=== PATIENT | male | born 1950 | race African-American/Black ===

== ENCOUNTER 2024-07-23 13:06 | Inpatient (IN) | payer OTHER ==
[2024-07-23] MEDS ORDERED: ACETAMINOPHEN INJECTION 100 ML ONE (14:10)
[2024-07-23] MEDS ORDERED: PIPERACILLIN/TAZOB 4.5 GM 4.5 GM/100 ML BAG IVPB ONE (14:10)
[2024-07-23 14:51] LABS: VENOUS BASE EXCESS -6.5 mmol/L (-2-2); VENOUS PCO2 38.2 mmHg (38-52); VENOUS PH 7.316 (7.310-7.410)
[2024-07-23 14:54] LABS: BASO % 0.1 % (0-2.0); HEMATOCRIT 31.7 % (35.4-49); HEMOGLOBIN 10.8 GM/dL (11.7-16.9); LYMPH % 30.8 % (8-40); MCH 27.9 pg (25.7-33.7); MEAN CELL VOLUME 81.9 fl (80-96); MEAN PLT VOLUME 8.3 fl (7.5-11.1); MONO % 3.9 % (3.8-10.2); NEUT % 65.2 % (42.8-82.8); PLATELET COUNT 151 10^3/uL (134-434); RBC 3.87 M/mm3 (4.00-5.60); RDW 16.4 % (11.9-15.9); WHITE BLOOD COUNT 5.1 K/mm3 (4.0-10.0)
[2024-07-23 14:55] LABS: INR 2.05 (0.83-1.09); PROTHROMBIN TIME (PATIENT) 22.6 SEC (9.7-13.0)
[2024-07-23 14:57] LABS: ACTIVATED PTT 40.5 SECONDS (25.2-36.5)
[2024-07-23] MEDS: PIPERACILLIN/TAZOB 4.5 GM 4.5 GM in DEXTROSE 5%-WATER 100 ML IVPB ONE (15:05)
[2024-07-23 15:07] LABS: POTASSIUM 3.6 mmol/L (3.5-5.1)
[2024-07-23 15:09] LABS: ALBUMIN 3.1 g/dl (3.4-5.0); BLOOD UREA NITROGEN 26.5 mg/dL (7-18); CALCIUM 8.4 mg/dL (8.5-10.1); MAGNESIUM 1.4 mg/dL (1.8-2.4)
[2024-07-23] MEDS: VANCOMYCIN 2,000 MG in DEXTROSE 5%-WATER - 500 ML IVPB ONE (15:10)
[2024-07-23 15:12] LABS: CREATININE 1.7 mg/dL (0.55-1.3)
[2024-07-23 15:14] LABS: BILIRUBIN,TOTAL 2.1 mg/dL (0.2-1); TOT PROT 7.3 g/dl (6.4-8.2)
[2024-07-23] MEDS: ACETAMINOPHEN 1000 MG/100 ML BAG IVPB ONE (15:18)
[2024-07-23] MEDS: LACTATED RINGERS SOLUTION 1000 ML INFUS.BAG IV ONE ×2 (15:18→21:32)
[2024-07-23 15:25] LABS: LACTIC ACID 4.9 mmol/L (0.4-2.0)
[2024-07-23 17:09] LABS: EPI CELLS 9 /uL (0-25.1); HYALINE CASTS 2 /uL (0-3.1); URINE APPEARANCE CLEAR; URINE BACTERIA 4 /uL (0-1359); URINE BILIRUBIN 1+ (NEGATIVE); URINE COLOR DK YELLOW; URINE GLUCOSE (UA) NEGATIVE (NEGATIVE); URINE KETONE TRACE (NEGATIVE); URINE LEUK ESTERASE NEGATIVE (NEGATIVE); URINE NITRITE NEGATIVE (NEGATIVE); URINE PROTEIN 1+ (NEGATIVE); URINE RBC 15 /uL (0-23.9); URINE WBC 13 /uL (0-25.8)
[2024-07-23] MEDS ORDERED: MAGNESIUM SULFATE IN WATER 2 GM/50 ML IVPB IVPB ONE (17:18)
[2024-07-23] MEDS: MAGNESIUM SULF 50% (8.12 MEQ/2 ML-1 GM VIAL) IVPB ONE (17:45)
[2024-07-23] MEDS: VANCOMYCIN/WATER 2 GRAMS 2,000 MG/400 ML PIGGYBACK IVPB ONE (17:45)
[2024-07-23 18:29] LABS: LACTIC ACID 4.6 mmol/L (0.4-2.0)
[2024-07-23] MEDS ORDERED: KETOROLAC TROMETHAMINE 15 MG/ML VIAL ONE (21:37)
[2024-07-23] MEDS ORDERED: THIAMINE HCL 200 MG/2 ML VIAL ONE (21:37)
[2024-07-23] MEDS: THIAMINE HCL 200 MG/2 ML VIAL IVPB ONE (21:57)
[2024-07-23] MEDS: KETOROLAC TROMETHAMINE 15 MG/ML VIAL IVPUSH ONE (21:57)
[2024-07-23 22:12] LABS: VENOUS BASE EXCESS -6.6 mmol/L (-2-2); VENOUS PCO2 34.4 mmHg (38-52); VENOUS PH 7.345 (7.310-7.410)
[2024-07-24] MEDS ORDERED: VANCOMYCIN 1,000 MG in DEXTROSE 5%-WATER - 250 ML IVPB SCH (01:00)
[2024-07-24] MEDS: GABAPENTIN 400 MG CAPSULE PO SCH ×2 (01:15→06:28)
[2024-07-24] MEDS: LACTATED RINGERS SOLUTION 1000 ML INFUS.BAG IV ONE ×2 (01:15→13:25)
[2024-07-24] MEDS: SODIUM CHLORIDE 1,000 ML IV SCH (01:15)
[2024-07-24] MEDS ORDERED: PIPERACILLIN/TAZOB 3.375 GM 3.375 GM in DEXTROSE 5%-WATER - 50 ML IVPB SCH (02:00)
[2024-07-24 02:27] LABS: POTASSIUM 4.5 mmol/L (3.5-5.1)
[2024-07-24 02:29] LABS: CALCIUM 7.8 mg/dL (8.5-10.1)
[2024-07-24 02:30] LABS: BLOOD UREA NITROGEN 36.6 mg/dL (7-18); MAGNESIUM 1.6 mg/dL (1.8-2.4)
[2024-07-24] MEDS ORDERED: NOREPINEPHRINE 0.9 % NACL 8 MG/250 ML BAG IVPB SCH (02:30)
[2024-07-24] MEDS ORDERED: PIPERACILLIN/TAZOB 3.375 GM 3.375 GM/50 ML BAG IVPB ONE (02:31)
[2024-07-24 02:33] LABS: CREATININE 2.2 mg/dL (0.55-1.3); PHOSPHOROUS 3.9 mg/dL (2.5-4.9)
[2024-07-24 02:34] LABS: BILIRUBIN,TOTAL 1.6 mg/dL (0.2-1); TOT PROT 6.3 g/dl (6.4-8.2)
[2024-07-24] MEDS: PIPERACILLIN/TAZOB 3.375 GM 3.375 GM in DEXTROSE 5%-WATER - 50 ML IVPB SCH (02:37)
[2024-07-24 02:40] LABS: ALBUMIN 2.4 g/dl (3.4-5.0); LACTIC ACID 5.7 mmol/L (0.4-2.0)
[2024-07-24] MEDS ORDERED: NOREPINEPHRINE BITARTRATE 4 MG/4 ML ML IV ONE (02:40)
[2024-07-24] MEDS ORDERED: VANCOMYCIN 1 GM PREMIX (F) 1 GM/200 ML BAG ONE (02:42)
[2024-07-24] MEDS: VANCOMYCIN 1 GM PREMIX (F) 1 GM/200 ML BAG IVPB SCH (02:42)
[2024-07-24] MEDS: NOREPINEPHRINE BITARTRATE 4,000 MCG in DEXTROSE 5%-WATER - 496 ML IV SCH (03:30)
[2024-07-24] MEDS: SODIUM CHLORIDE 1,000 ML IV STA (03:42)
[2024-07-24] MEDS ORDERED: ACETAMINOPHEN INJECTION 100 ML ONE (05:00)
[2024-07-24] MEDS ORDERED: TRIPLE LUMEN FLUSH 4 ML ML IVPUSH PRN (05:02)
[2024-07-24] MEDS: AZITHROMYCIN IVPB 500 MG/250 ML BAG IVPB SCH (05:03)
[2024-07-24] MEDS: NOREPINEPHRINE 0.9 % NACL 8 MG/250 ML BAG IVPB SCH (05:43)
[2024-07-24] MEDS: ACETAMINOPHEN 1000 MG/100 ML BAG IVPB PRN (05:56)
[2024-07-24 06:09] VITALS: BMI 40.9
[2024-07-24 06:19] LABS: POTASSIUM 3.6 mmol/L (3.5-5.1)
[2024-07-24 06:22] LABS: ALBUMIN 2.7 g/dl (3.4-5.0); BLOOD UREA NITROGEN 40.9 mg/dL (7-18); MAGNESIUM 1.7 mg/dL (1.8-2.4)
[2024-07-24 06:24] LABS: BILIRUBIN,DIRECT 0.5 mg/dL (0.0-0.2); CREATININE 1.9 mg/dL (0.55-1.3)
[2024-07-24 06:26] LABS: BILIRUBIN,TOTAL 1.6 mg/dL (0.2-1); TOT PROT 6.4 g/dl (6.4-8.2)
[2024-07-24 07:00] LABS: LACTIC ACID 3.6 mmol/L (0.4-2.0)
[2024-07-24 07:08] LABS: HEMOGLOBIN 10.1 GM/dL (11.7-16.9); MCH 27.5 pg (25.7-33.7); MCHC 33.5 g/dl (32.0-35.9); MEAN CELL VOLUME 82.1 fl (80-96); MEAN PLT VOLUME 8.9 fl (7.5-11.1); PLATELET COUNT 109 10^3/uL (134-434); RBC 3.65 M/mm3 (4.00-5.60); RDW 16.6 % (11.9-15.9); WHITE BLOOD COUNT 5.7 K/mm3 (4.0-10.0)
[2024-07-24] MEDS: MAGNESIUM 2GM/50ML STERILE WATER IVPB IVPB ONE (09:14)
[2024-07-24] MEDS: TAMSULOSIN HCL 0.4 MG CAP PO SCH (09:17)
[2024-07-24] MEDS: APIXABAN 5 MG TABLET PO SCH (09:17)
[2024-07-24 09:50] LABS: ANISOCYTOSIS 0; MACROCYTOSIS 0; TARGET CELLS 1+
[2024-07-24] MEDS ORDERED: metoPROLOL SUCCINATE 25 MG TAB.SR.24H (FP) PO SCH (10:00)
[2024-07-24] MEDS ORDERED: DEXMEDETOMIDINE IN 0.9 % NACL 400 MCG/100 ML BAG IVPB SCH (20:15)
[2024-07-24] MEDS: DEXMEDETOMIDINE PREMIX 400 MCG/100 ML BAG IVPB SCH (20:35)
[2024-07-24] MEDS ORDERED: ATORVASTATIN CA 40 MG TABLET (FP) PO SCH (22:00)
[2024-07-25] MEDS: PIPERACILLIN/TAZOB 3.375 GM 50 ML IVPB SCH (01:16)
[2024-07-25 07:19] LABS: HEMATOCRIT 30.4 % (35.4-49); HEMOGLOBIN 10.1 GM/dL (11.7-16.9); INR 1.81 (0.83-1.09); MCH 27.6 pg (25.7-33.7); MCHC 33.3 g/dl (32.0-35.9); MEAN CELL VOLUME 82.8 fl (80-96); MEAN PLT VOLUME 9.2 fl (7.5-11.1); PLATELET COUNT 96 10^3/uL (134-434); PROTHROMBIN TIME (PATIENT) 19.7 SEC (9.7-13.0); RBC 3.67 M/mm3 (4.00-5.60); RDW 16.6 % (11.9-15.9); WHITE BLOOD COUNT 7.2 K/mm3 (4.0-10.0)
[2024-07-25 07:42] LABS: POTASSIUM 3.8 mmol/L (3.5-5.1)
[2024-07-25 07:47] LABS: ALBUMIN 2.6 g/dl (3.4-5.0); BLOOD UREA NITROGEN 48.7 mg/dL (7-18)
[2024-07-25 07:49] LABS: CALCIUM 8.4 mg/dL (8.5-10.1); MAGNESIUM 2.5 mg/dL (1.8-2.4)
[2024-07-25 07:50] LABS: CREATININE 1.7 mg/dL (0.55-1.3); PHOSPHOROUS 3.4 mg/dL (2.5-4.9)
[2024-07-25 07:51] LABS: BILIRUBIN,TOTAL 1.9 mg/dL (0.2-1); TOT PROT 6.6 g/dl (6.4-8.2)
[2024-07-25 10:14] LABS: HCV DIAGNOSTIC IN-HOUSE W/RFLX REACTIVE (NONREACTIVE)
[2024-07-25 10:27] LABS: ANISOCYTOSIS 1+; MACROCYTOSIS 0; TARGET CELLS 2+
[2024-07-25] MEDS ORDERED: ENOXAPARIN NA (PORCINE) 30 MG/0.3 ML DISP.SYRIN SQ SCH (11:30)
[2024-07-25] MEDS: LORazepam 2 MG/ML SDV VIAL IVPUSH ONE (18:03)
[2024-07-26] MEDS: ACETAMINOPHEN 1000 MG/100 ML BAG IVPB PRN ×2 (06:17→21:26)
[2024-07-26 08:28] LABS: POTASSIUM 3.4 mmol/L (3.5-5.1)
[2024-07-26 08:30] LABS: CALCIUM 8.3 mg/dL (8.5-10.1)
[2024-07-26 08:31] LABS: ALBUMIN 2.2 g/dl (3.4-5.0); BLOOD UREA NITROGEN 47.8 mg/dL (7-18); MAGNESIUM 2.8 mg/dL (1.8-2.4)
[2024-07-26 08:34] LABS: CREATININE 1.2 mg/dL (0.55-1.3); PHOSPHOROUS 2.6 mg/dL (2.5-4.9)
[2024-07-26 08:35] LABS: BILIRUBIN,TOTAL 2.6 mg/dL (0.2-1); TOT PROT 6.4 g/dl (6.4-8.2)
[2024-07-26 08:45] LABS: HEMATOCRIT 27.5 % (35.4-49); HEMOGLOBIN 9.5 GM/dL (11.7-16.9); MCHC 34.4 g/dl (32.0-35.9); MEAN CELL VOLUME 81.4 fl (80-96); MEAN PLT VOLUME 9.1 fl (7.5-11.1); PLATELET COUNT 115 10^3/uL (134-434); RBC 3.38 M/mm3 (4.00-5.60); RDW 16.1 % (11.9-15.9); WHITE BLOOD COUNT 5.9 K/mm3 (4.0-10.0)
[2024-07-26] MEDS: POTASSIUM CHLORIDE ORAL LIQUID 20 MEQ/15 ML PO ONE (09:54)
[2024-07-26 10:29] LABS: INR 1.55 (0.83-1.09); PROTHROMBIN TIME (PATIENT) 16.9 SEC (9.7-13.0)
[2024-07-26] MEDS: PHYTONADIONE 10 MG/1 ML AMP IVPB ONE (10:42)
[2024-07-26] MEDS: PHYTONADIONE 5 MG TABLET PO ONE (10:49)
[2024-07-26 10:54] LABS: ANISOCYTOSIS 1+; MACROCYTOSIS 0
[2024-07-26] MEDS: INDOMETHACIN 50 MG RECTAL SUPPOSITORY PR ONE (16:14)
[2024-07-26] MEDS ORDERED: ROCURONIUM BROMIDE 50 MG/5 ML SYRINGE ONE (16:46)
[2024-07-27] MEDS: morphine SULFATE 4 MG/ML VIAL IVPUSH ONE (04:05)
[2024-07-27 10:48] LABS: HEMATOCRIT 27.6 % (35.4-49); HEMOGLOBIN 9.4 GM/dL (11.7-16.9); MCH 27.7 pg (25.7-33.7); MCHC 33.9 g/dl (32.0-35.9); MEAN CELL VOLUME 81.6 fl (80-96); MEAN PLT VOLUME 8.6 fl (7.5-11.1); PLATELET COUNT 142 10^3/uL (134-434); RBC 3.39 M/mm3 (4.00-5.60); RDW 16.5 % (11.9-15.9); WHITE BLOOD COUNT 9.3 K/mm3 (4.0-10.0)
[2024-07-27 11:18] LABS: CALCIUM 8.5 mg/dL (8.5-10.1)
[2024-07-27 11:19] LABS: BLOOD UREA NITROGEN 41.7 mg/dL (7-18)
[2024-07-27 11:23] LABS: BILIRUBIN,TOTAL 1.8 mg/dL (0.2-1); TOT PROT 6.6 g/dl (6.4-8.2)
[2024-07-27] MEDS ORDERED: PHYTONADIONE 10 MG/1 ML AMP IVPB ONE (14:55)
[2024-07-27] MEDS ORDERED: TRIPLE LUMEN FLUSH 4 ML ML IVPUSH PRN (15:46)
[2024-07-27] MEDS: PIPERACILLIN/TAZOB 3.375 GM 50 ML IVPB SCH (17:41)
[2024-07-27] MEDS: ACETAMINOPHEN 1000 MG/100 ML BAG IVPB PRN (19:38)
[2024-07-27] MEDS: GABAPENTIN 400 MG CAPSULE PO SCH (22:28)
[2024-07-27] MEDS: PHYTONADIONE 10 MG/1 ML AMP IVPB ONE (22:33)
[2024-07-28] MEDS: KETOROLAC TROMETHAMINE 15 MG/ML VIAL IVPUSH ONE (03:33)
[2024-07-28] MEDS ORDERED: INDOCYANINE GREEN 25 MG/10 ML VIAL IVPUSH ONE (07:07)
[2024-07-28] MEDS ORDERED: BUPIVACAINE HCL/PF 0.25% (2.5MG/ML) 10 ML VIAL ONE (07:08)
[2024-07-28] MEDS ORDERED: HEPARIN NA (PORCINE) 5,000 UNITS/ML 1ML VIAL ONE (07:08)
[2024-07-28] MEDS ORDERED: MIDAZOLAM HCL 2 MG/2 ML SINGLE DOSE VIAL ONE (07:14)
[2024-07-28] MEDS ORDERED: ONDANSETRON 4 MG/2 ML VIAL IVPUSH PRN ×2 (07:24→09:47)
[2024-07-28] MEDS ORDERED: oxyCODONE HCL 5 MG TABLET PO PRN ×3 (07:24→09:47)
[2024-07-28] MEDS ORDERED: DEXAMETHASONE SOD PHOSPHATE 4 MG/1 ML VIAL ONE (07:33)
[2024-07-28] MEDS ORDERED: ROCURONIUM BROMIDE 50 MG/5 ML SYRINGE ONE (07:33)
[2024-07-28] MEDS ORDERED: ONDANSETRON 4 MG/2 ML VIAL ONE (07:33)
[2024-07-28] MEDS ORDERED: SUGAMMADEX SODIUM 200 MG/2 ML VIAL ONE (07:33)
[2024-07-28] MEDS ORDERED: PROPOFOL 20 ML ONE (07:33)
[2024-07-28] MEDS ORDERED: LIDOCAINE HCL/PF 2% SDV 5ML VIAL ONE (07:33)
[2024-07-28] MEDS ORDERED: PIPERACILLIN/TAZOBACTAM 3.375 GM VIAL IVPB ONE (07:59)
[2024-07-28] MEDS: PIPERACILLIN/TAZOBACTAM 3.375 GM VIAL IVPB ONE (08:00)
[2024-07-28] MEDS: BUPIVACAINE HCL/PF 0.25% (2.5MG/ML) 10 ML VIAL IJ ONE (08:02)
[2024-07-28] MEDS ORDERED: ACETAMINOPHEN INJECTION 100 ML ONE (08:21)
[2024-07-28] MEDS ORDERED: SEVOFLURANE 250 ML BTL ONE (08:21)
[2024-07-28] MEDS ORDERED: KETOROLAC TROMETHAMINE 30 MG/1 ML VIAL ONE (08:50)
[2024-07-28] MEDS: LACTATED RINGERS SOLUTION 1,000 ML IV SCH ×2 (09:43→10:12)
[2024-07-28] MEDS ORDERED: TRIPLE LUMEN FLUSH 4 ML ML IVPUSH PRN (09:47)
[2024-07-28] MEDS: PIPERACILLIN/TAZOB 3.375 GM 50 ML IVPB SCH (10:12)
[2024-07-28 11:54] LABS: HEMATOCRIT 25.1 % (35.4-49); HEMOGLOBIN 8.6 GM/dL (11.7-16.9); MCH 27.6 pg (25.7-33.7); MCHC 34.1 g/dl (32.0-35.9); MEAN CELL VOLUME 81.1 fl (80-96); MEAN PLT VOLUME 8.8 fl (7.5-11.1); PLATELET COUNT 187 10^3/uL (134-434); RDW 16.1 % (11.9-15.9); WHITE BLOOD COUNT 13.2 K/mm3 (4.0-10.0)
[2024-07-28 12:14] LABS: POTASSIUM 4.1 mmol/L (3.5-5.1)
[2024-07-28 12:16] LABS: ALBUMIN 1.8 g/dl (3.4-5.0); CALCIUM 8.2 mg/dL (8.5-10.1)
[2024-07-28 12:17] LABS: BLOOD UREA NITROGEN 41.2 mg/dL (7-18); MAGNESIUM 2.3 mg/dL (1.8-2.4)
[2024-07-28 12:20] LABS: CREATININE 1.2 mg/dL (0.55-1.3); PHOSPHOROUS 2.6 mg/dL (2.5-4.9)
[2024-07-28 12:21] LABS: BILIRUBIN,TOTAL 1.5 mg/dL (0.2-1)
[2024-07-28 12:22] LABS: TOT PROT 6.2 g/dl (6.4-8.2)
[2024-07-28] MEDS: GABAPENTIN 400 MG CAPSULE PO SCH (13:04)
[2024-07-28] MEDS: SODIUM CHLORIDE 0.45% 1,000 ML IV SCH (14:12)
[2024-07-29] MEDS: CEFAZOLIN 2 GM/D5W 2 GM/50 ML ML IVPB SCH (10:13)
[2024-07-29] MEDS: TAMSULOSIN HCL 0.4 MG CAP PO SCH ×2 (10:13→10:27)
[2024-07-29 10:42] LABS: HEMATOCRIT 26.5 % (35.4-49); HEMOGLOBIN 8.9 GM/dL (11.7-16.9); MCH 27.1 pg (25.7-33.7); MCHC 33.5 g/dl (32.0-35.9); MEAN PLT VOLUME 8.7 fl (7.5-11.1); PLATELET COUNT 217 10^3/uL (134-434); RBC 3.28 M/mm3 (4.00-5.60); RDW 16.3 % (11.9-15.9); WHITE BLOOD COUNT 13.5 K/mm3 (4.0-10.0)
[2024-07-29 10:56] LABS: POTASSIUM 4.5 mmol/L (3.5-5.1)
[2024-07-29 10:59] LABS: CALCIUM 8.2 mg/dL (8.5-10.1)
[2024-07-29 11:00] LABS: ALBUMIN 1.7 g/dl (3.4-5.0); BLOOD UREA NITROGEN 42.2 mg/dL (7-18)
[2024-07-29 11:04] LABS: TOT PROT 6.4 g/dl (6.4-8.2)
[2024-07-29 12:21] LABS: ANISOCYTOSIS 0; HELMET CELLS 0; HOWELL-JOLLY BODIES 0; MACROCYTOSIS 0; OVALOCYTE 0; ROULEAU 0; SICKELED CELLS 0; TARGET CELLS 0; TEAR DROP CELLS 0; TOXIC GRANULATION 0
[2024-07-29] MEDS: PANTOPRAZOLE SODIUM 40 MG VIAL IVPUSH SCH (12:59)
[2024-07-29] MEDS: oxyCODONE HCL 5 MG TABLET PO PRN (18:18)
[2024-07-29] MEDS: ACETAMINOPHEN 325 MG TABLET (FP) PO PRN (19:21)
[2024-07-29 19:54] LABS: HEMATOCRIT 26.2 % (35.4-49); HEMOGLOBIN 8.8 GM/dL (11.7-16.9); MCH 27.4 pg (25.7-33.7); MCHC 33.8 g/dl (32.0-35.9); MEAN CELL VOLUME 81.1 fl (80-96); MEAN PLT VOLUME 9.2 fl (7.5-11.1); RBC 3.23 M/mm3 (4.00-5.60); RDW 16.9 % (11.9-15.9); WHITE BLOOD COUNT 20.6 K/mm3 (4.0-10.0)
[2024-07-29] MEDS: ACETAMINOPHEN 1000 MG/100 ML BAG IVPB ONE (21:05)
[2024-07-29 21:26] LABS: PLATELET COUNT 251 10^3/uL (134-434)
[2024-07-30] MEDS: ACETAMINOPHEN 1000 MG/100 ML BAG IVPB ONE (06:06)
[2024-07-30] MEDS: SODIUM CHLORIDE 0.45% 1,000 ML IV SCH (11:34)
[2024-07-30 13:06] LABS: EPI CELLS >36 /uL (0-25.1); HYALINE CASTS 1 /uL (0-3.1); URINE APPEARANCE CLOUDY; URINE BACTERIA 4 /uL (0-1359); URINE BILIRUBIN NEGATIVE (NEGATIVE); URINE COLOR YELLOW; URINE GLUCOSE (UA) NEGATIVE (NEGATIVE); URINE KETONE NEGATIVE (NEGATIVE); URINE LEUK ESTERASE NEGATIVE (NEGATIVE); URINE NITRITE NEGATIVE (NEGATIVE); URINE PROTEIN 2+ (NEGATIVE); URINE UROBILINOGEN 0.2 mg/dL (0.2-1.0)
[2024-07-30 13:07] LABS: URINE RBC 206 /uL (0-23.9)
[2024-07-30] MEDS: ACETAMINOPHEN 325 MG TABLET (FP) PO PRN (13:46)
[2024-07-30] MEDS: PIPERACILLIN/TAZOB 4.5 GM 4.5 GM/100 ML BAG IVPB SCH (17:22)
[2024-07-30] MEDS: VANCOMYCIN/WATER 1250 MG 1,250 MG/250 ML BAG IVPB ONE ×2 (17:59→22:37)
[2024-07-30 18:11] LABS: BASO % 0.3 % (0-2.0); EOS % 0.5 % (0-4.5); HEMATOCRIT 25.1 % (35.4-49); HEMOGLOBIN 8.2 GM/dL (11.7-16.9); LYMPH % 30.4 % (8-40); MCH 26.4 pg (25.7-33.7); MCHC 32.5 g/dl (32.0-35.9); MEAN CELL VOLUME 81.1 fl (80-96); MEAN PLT VOLUME 8.6 fl (7.5-11.1); NEUT % 62.8 % (42.8-82.8); PLATELET COUNT 276 10^3/uL (134-434); RDW 16.2 % (11.9-15.9); WHITE BLOOD COUNT 14.6 K/mm3 (4.0-10.0)
[2024-07-30 18:24] LABS: POTASSIUM 3.8 mmol/L (3.5-5.1)
[2024-07-30 18:26] LABS: CALCIUM 8.4 mg/dL (8.5-10.1)
[2024-07-30 18:27] LABS: ALBUMIN 1.6 g/dl (3.4-5.0); BLOOD UREA NITROGEN 25.8 mg/dL (7-18)
[2024-07-30 18:30] LABS: CREATININE 0.8 mg/dL (0.55-1.3)
[2024-07-30 18:31] LABS: BILIRUBIN,TOTAL 0.8 mg/dL (0.2-1)
[2024-07-30 18:32] LABS: TOT PROT 6.3 g/dl (6.4-8.2)
[2024-07-30] MEDS ORDERED: IBUPROFEN 800 MG/8 ML IJ IVPB PRN (22:51)
[2024-07-30] MEDS: IBUPROFEN 800 MG/8 ML IJ IVPB PRN (23:07)
[2024-07-31] MEDS ORDERED: SODIUM CHLORIDE 0.45% 1,000 ML IV SCH (09:00)
[2024-07-31] MEDS: oxyCODONE HCL 5 MG TABLET PO PRN (14:25)
[2024-07-31] MEDS: ACETAMINOPHEN 325 MG TABLET (FP) PO ONE (14:25)
[2024-07-31 17:26] LABS: HEMATOCRIT 22.4 % (35.4-49); HEMOGLOBIN 7.5 GM/dL (11.7-16.9); MCH 26.8 pg (25.7-33.7); MCHC 33.6 g/dl (32.0-35.9); MEAN CELL VOLUME 79.7 fl (80-96); MEAN PLT VOLUME 8.6 fl (7.5-11.1); PLATELET COUNT 274 10^3/uL (134-434); RBC 2.82 M/mm3 (4.00-5.60); RDW 16.5 % (11.9-15.9); WHITE BLOOD COUNT 15.2 K/mm3 (4.0-10.0)
[2024-07-31 18:03] LABS: POTASSIUM 3.7 mmol/L (3.5-5.1)
[2024-07-31 18:05] LABS: ALBUMIN 1.5 g/dl (3.4-5.0); BLOOD UREA NITROGEN 23.1 mg/dL (7-18); CALCIUM 8.2 mg/dL (8.5-10.1)
[2024-07-31 18:08] LABS: CREATININE 0.8 mg/dL (0.55-1.3)
[2024-07-31 18:10] LABS: BILIRUBIN,TOTAL 0.8 mg/dL (0.2-1); TOT PROT 6.2 g/dl (6.4-8.2)
[2024-07-31] MEDS: IBUPROFEN 800 MG/8 ML IJ IVPB PRN (20:49)
[2024-07-31 21:41] LABS: ANISOCYTOSIS 2+; MACROCYTOSIS 1+; TARGET CELLS 3+
[2024-08-01] MEDS: amLODIPine BESYLATE 10 MG TABLET (FP) PO SCH (09:50)
[2024-08-01] MEDS ORDERED: TRIPLE LUMEN FLUSH 4 ML ML IVPUSH PRN (10:16)
[2024-08-01] MEDS: oxyCODONE HCL 5 MG TABLET PO PRN (12:47)
[2024-08-01] MEDS: IBUPROFEN 800 MG/8 ML IJ IVPB PRN (13:21)
[2024-08-01] MEDS: GABAPENTIN 400 MG CAPSULE PO SCH (13:22)
[2024-08-01] MEDS ORDERED: VANCOMYCIN 1,000 MG in DEXTROSE 5%-WATER - 250 ML IVPB SCH (16:15)
[2024-08-01] MEDS ORDERED: VANCOMYCIN 1 GM PREMIX (F) 1 GM/200 ML BAG IVPB SCH (17:00)
[2024-08-01] MEDS: VANCOMYCIN/WATER 1250 MG 1,250 MG/250 ML BAG IVPB SCH (18:22)
[2024-08-01] MEDS: SODIUM CHLORIDE 1,000 ML IV SCH (18:22)
[2024-08-01] MEDS: PIPERACILLIN/TAZOB 4.5 GM 4.5 GM/100 ML BAG IVPB SCH (18:22)
[2024-08-01] MEDS: PANTOPRAZOLE SODIUM 40 MG VIAL IVPUSH SCH (21:05)
[2024-08-02 07:46] LABS: HEMATOCRIT 21.2 % (35.4-49); HEMOGLOBIN 7.2 GM/dL (11.7-16.9); MCH 26.8 pg (25.7-33.7); MCHC 33.7 g/dl (32.0-35.9); MEAN CELL VOLUME 79.7 fl (80-96); MEAN PLT VOLUME 8.6 fl (7.5-11.1); PLATELET COUNT 339 10^3/uL (134-434); RBC 2.66 M/mm3 (4.00-5.60); RDW 16.5 % (11.9-15.9); WHITE BLOOD COUNT 16.2 K/mm3 (4.0-10.0)
[2024-08-02 08:07] LABS: POTASSIUM 3.9 mmol/L (3.5-5.1)
[2024-08-02 08:14] LABS: CALCIUM 8.2 mg/dL (8.5-10.1)
[2024-08-02 08:15] LABS: ALBUMIN 1.4 g/dl (3.4-5.0); BLOOD UREA NITROGEN 21.7 mg/dL (7-18)
[2024-08-02 08:18] LABS: CREATININE 0.9 mg/dL (0.55-1.3); PHOSPHOROUS 3.4 mg/dL (2.5-4.9)
[2024-08-02 08:20] LABS: TOT PROT 6.2 g/dl (6.4-8.2)
[2024-08-02 10:03] LABS: ROULEAU 1+; TARGET CELLS 2+
[2024-08-02] MEDS: TAMSULOSIN HCL 0.4 MG CAP PO SCH (11:32)
[2024-08-03] MEDS: VANCOMYCIN HCL IN 5 % DEXTROSE 1,250 MG/250 ML BAG IV SCH (05:50)
[2024-08-03] MEDS: DEXTROSE 5%-WATER - 1,000 ML IV SCH (17:09)
[2024-08-04] MEDS: FENTANYL CITRATE/PF 50 MCG/ML VIAL IVPUSH ONE (13:10)
[2024-08-04] MEDS: VANCOMYCIN 1,000 MG in DEXTROSE 5%-WATER - 250 ML IVPB SCH (14:13)
[2024-08-04] MEDS: hydrALAZINE HCL 25 MG TABLET (FP) PO SCH (22:03)
[2024-08-05 08:06] LABS: HEMATOCRIT 22.1 % (35.4-49); HEMOGLOBIN 7.4 GM/dL (11.7-16.9); MCH 26.9 pg (25.7-33.7); MCHC 33.5 g/dl (32.0-35.9); MEAN CELL VOLUME 80.5 fl (80-96); MEAN PLT VOLUME 8.3 fl (7.5-11.1); PLATELET COUNT 543 10^3/uL (134-434); RBC 2.75 M/mm3 (4.00-5.60); RDW 16.3 % (11.9-15.9); WHITE BLOOD COUNT 16.7 K/mm3 (4.0-10.0)
[2024-08-05 08:09] LABS: BASO % 0.4 % (0-2.0); EOS % 0.9 % (0-4.5); HEMATOCRIT 22.2 % (35.4-49); HEMOGLOBIN 7.6 GM/dL (11.7-16.9); LYMPH % 8.4 % (8-40); MEAN CELL VOLUME 79.4 fl (80-96); MEAN PLT VOLUME 8.1 fl (7.5-11.1); MONO % 6.5 % (3.8-10.2); NEUT % 83.8 % (42.8-82.8); PLATELET COUNT 589 10^3/uL (134-434); WHITE BLOOD COUNT 17.4 K/mm3 (4.0-10.0)
[2024-08-05 08:26] LABS: POTASSIUM 3.7 mmol/L (3.5-5.1)
[2024-08-05 08:28] LABS: ALBUMIN 1.4 g/dl (3.4-5.0); BLOOD UREA NITROGEN 9.6 mg/dL (7-18); CALCIUM 8.4 mg/dL (8.5-10.1); MAGNESIUM 1.8 mg/dL (1.8-2.4)
[2024-08-05 08:31] LABS: CREATININE 0.8 mg/dL (0.55-1.3)
[2024-08-05 08:33] LABS: TOT PROT 6.6 g/dl (6.4-8.2)
[2024-08-05] MEDS: hydrALAZINE HCL 25 MG TABLET (FP) PO SCH (10:52)
[2024-08-05 10:53] LABS: ERYTHROCYTE SEDIMENTATION RATE > 140 mm/hr (0-20)
[2024-08-06] MEDS: oxyCODONE HCL 5 MG TABLET PO PRN (03:40)
[2024-08-06 07:44] LABS: HEMATOCRIT 19.7 % (35.4-49); MCH 26.5 pg (25.7-33.7); MCHC 33.4 g/dl (32.0-35.9); MEAN CELL VOLUME 79.5 fl (80-96); MEAN PLT VOLUME 7.9 fl (7.5-11.1); PLATELET COUNT 609 10^3/uL (134-434); RBC 2.47 M/mm3 (4.00-5.60); RDW 16.1 % (11.9-15.9); WHITE BLOOD COUNT 16.2 K/mm3 (4.0-10.0)
[2024-08-06 07:52] LABS: HEMOGLOBIN 6.6 GM/dL (11.7-16.9)
[2024-08-06 08:09] LABS: POTASSIUM 3.3 mmol/L (3.5-5.1)
[2024-08-06 08:11] LABS: ALBUMIN 1.4 g/dl (3.4-5.0); BLOOD UREA NITROGEN 10.2 mg/dL (7-18); CALCIUM 7.7 mg/dL (8.5-10.1); MAGNESIUM 1.7 mg/dL (1.8-2.4)
[2024-08-06 08:14] LABS: CREATININE 0.8 mg/dL (0.55-1.3)
[2024-08-06 08:15] LABS: PHOSPHOROUS 2.9 mg/dL (2.5-4.9)
[2024-08-06 08:16] LABS: BILIRUBIN,TOTAL 0.9 mg/dL (0.2-1); TOT PROT 6.2 g/dl (6.4-8.2)
[2024-08-06] MEDS: MAGNESIUM 1GM/D5W - 1 GM/100 ML IVPB IVPB ONE (10:49)
[2024-08-06] MEDS: POTASSIUM CHLORIDE TABS 20 MEQ TABLET.ER (FP) PO SCH (10:50)
[2024-08-06] MEDS: IBUPROFEN 400 MG TABLET (FP) PO ONE (13:10)
[2024-08-06] MEDS ORDERED: SENNOSIDES 8.6MG TABLET (FP) PO PRN (17:54)
[2024-08-06 18:55] LABS: BASO % 0.6 % (0-2.0); LYMPH % 10.4 % (8-40); MCH 26.6 pg (25.7-33.7); MCHC 33.5 g/dl (32.0-35.9); MEAN CELL VOLUME 79.5 fl (80-96); MEAN PLT VOLUME 7.5 fl (7.5-11.1); MONO % 9.2 % (3.8-10.2); NEUT % 78.8 % (42.8-82.8); PLATELET COUNT 597 10^3/uL (134-434); RBC 2.64 M/mm3 (4.00-5.60); RDW 15.8 % (11.9-15.9); WHITE BLOOD COUNT 14.4 K/mm3 (4.0-10.0)
[2024-08-06] MEDS: GABAPENTIN 400 MG CAPSULE PO SCH (21:29)
[2024-08-07] MEDS: PANTOPRAZOLE 40 MG TABLET PO SCH (10:05)
[2024-08-07] MEDS: FUROSEMIDE 40 MG TABLET (FP) PO SCH (10:12)
[2024-08-08 08:09] LABS: POTASSIUM 3.9 mmol/L (3.5-5.1)
[2024-08-08 08:15] LABS: ALBUMIN 1.5 g/dl (3.4-5.0); BLOOD UREA NITROGEN 11.9 mg/dL (7-18); CALCIUM 8.3 mg/dL (8.5-10.1)
[2024-08-08 08:20] LABS: TOT PROT 6.7 g/dl (6.4-8.2)
[2024-08-08 08:25] LABS: BILIRUBIN,TOTAL 0.8 mg/dL (0.2-1)
[2024-08-09] MEDS: ACETAMINOPHEN 325 MG TABLET (FP) PO PRN (17:31)
[2024-08-10 09:14] LABS: HEMATOCRIT 21.4 % (35.4-49); HEMOGLOBIN 7.4 GM/dL (11.7-16.9); MCH 27.4 pg (25.7-33.7); MCHC 34.4 g/dl (32.0-35.9); MEAN CELL VOLUME 79.6 fl (80-96); MEAN PLT VOLUME 7.2 fl (7.5-11.1); PLATELET COUNT 592 10^3/uL (134-434); RBC 2.69 M/mm3 (4.00-5.60); RDW 15.8 % (11.9-15.9); WHITE BLOOD COUNT 12.9 K/mm3 (4.0-10.0)
[2024-08-10 09:19] LABS: INR 1.39 (0.83-1.09); PROTHROMBIN TIME (PATIENT) 15.1 SEC (9.7-13.0)
[2024-08-10 09:21] LABS: ACTIVATED PTT 34.9 SECONDS (25.2-36.5)
[2024-08-10 09:31] LABS: ALBUMIN 1.5 g/dl (3.4-5.0); BLOOD UREA NITROGEN 11.8 mg/dL (7-18); CALCIUM 8.1 mg/dL (8.5-10.1); MAGNESIUM 1.7 mg/dL (1.8-2.4)
[2024-08-10 09:35] LABS: PHOSPHOROUS 2.9 mg/dL (2.5-4.9)
[2024-08-10 09:36] LABS: BILIRUBIN,TOTAL 0.6 mg/dL (0.2-1); TOT PROT 6.5 g/dl (6.4-8.2)
[2024-08-10] MEDS: MAGNESIUM OXIDE 400 MG TABLET (FP) PO ONE (14:43)
[2024-08-10] MEDS ORDERED: PROPOFOL 20 ML ONE (14:55)
[2024-08-10] MEDS ORDERED: BUPIVACAINE HCL/PF 0.25% (2.5MG/ML) 10 ML VIAL ONE (15:12)
[2024-08-10] MEDS ORDERED: ONDANSETRON 4 MG/2 ML VIAL ONE (16:56)
[2024-08-10] MEDS ORDERED: ACETAMINOPHEN 500 MG TABLET (FP) PO PRN (17:10)
[2024-08-10] MEDS ORDERED: SENNOSIDES 8.6MG TABLET (FP) PO PRN ×2 (17:10→18:06)
[2024-08-10] MEDS ORDERED: ACETAMINOPHEN 325 MG TABLET (FP) PO PRN (17:10)
[2024-08-10] MEDS ORDERED: oxyCODONE HCL 5 MG TABLET PO PRN (17:10)
[2024-08-10] MEDS ORDERED: TRIPLE LUMEN FLUSH 4 ML ML IVPUSH PRN ×2 (17:10→18:06)
[2024-08-10] MEDS ORDERED: ACETAMINOPHEN INJECTION 100 ML ONE (17:43)
[2024-08-10] MEDS: ACETAMINOPHEN 1000 MG/100 ML BAG IVPB ONE (17:50)
[2024-08-10] MEDS: LACTATED RINGERS SOLUTION 1,000 ML IV SCH ×2 (17:51→19:35)
[2024-08-10] MEDS: oxyCODONE HCL 5 MG TABLET PO PRN (19:33)
[2024-08-10] MEDS: GABAPENTIN 400 MG CAPSULE PO SCH (21:25)
[2024-08-10] MEDS: hydrALAZINE HCL 25 MG TABLET (FP) PO SCH (21:25)
[2024-08-10] MEDS ORDERED: GABAPENTIN 400 MG CAPSULE PO SCH (22:00)
[2024-08-10] MEDS ORDERED: hydrALAZINE HCL 25 MG TABLET (FP) PO SCH (22:00)
[2024-08-11] MEDS: PIPERACILLIN/TAZOB 4.5 GM 4.5 GM/100 ML BAG IVPB SCH ×2 (01:33→07:45)
[2024-08-11] MEDS: VANCOMYCIN HCL IN 5 % DEXTROSE 1,250 MG/250 ML BAG IV SCH ×2 (06:04→07:44)
[2024-08-11 08:17] LABS: HEMATOCRIT 19.4 % (35.4-49); MCH 27.1 pg (25.7-33.7); MCHC 33.6 g/dl (32.0-35.9); MEAN CELL VOLUME 80.7 fl (80-96); MEAN PLT VOLUME 7.2 fl (7.5-11.1); PLATELET COUNT 531 10^3/uL (134-434); RBC 2.41 M/mm3 (4.00-5.60); RDW 15.8 % (11.9-15.9); WHITE BLOOD COUNT 13.7 K/mm3 (4.0-10.0)
[2024-08-11 08:22] LABS: HEMOGLOBIN 6.5 GM/dL (11.7-16.9)
[2024-08-11 08:30] LABS: POTASSIUM 4.5 mmol/L (3.5-5.1)
[2024-08-11] MEDS ORDERED: TAMSULOSIN HCL 0.4 MG CAP PO SCH (08:30)
[2024-08-11 08:33] LABS: ALBUMIN 1.5 g/dl (3.4-5.0); CALCIUM 7.9 mg/dL (8.5-10.1)
[2024-08-11 08:34] LABS: BLOOD UREA NITROGEN 12.4 mg/dL (7-18); MAGNESIUM 1.6 mg/dL (1.8-2.4)
[2024-08-11 08:36] LABS: PHOSPHOROUS 3.4 mg/dL (2.5-4.9)
[2024-08-11 08:38] LABS: BILIRUBIN,TOTAL 0.6 mg/dL (0.2-1); TOT PROT 6.4 g/dl (6.4-8.2)
[2024-08-11] MEDS: amLODIPine BESYLATE 10 MG TABLET (FP) PO SCH (09:24)
[2024-08-11] MEDS: POTASSIUM CHLORIDE TABS 20 MEQ TABLET.ER (FP) PO SCH (09:24)
[2024-08-11] MEDS: PANTOPRAZOLE 40 MG TABLET PO SCH (09:25)
[2024-08-11] MEDS: FUROSEMIDE 40 MG TABLET (FP) PO SCH (09:25)
[2024-08-11] MEDS: TAMSULOSIN HCL 0.4 MG CAP PO SCH (09:25)
[2024-08-11] MEDS: MAGNESIUM OXIDE 400 MG TABLET (FP) PO ONE ×2 (09:28→12:05)
[2024-08-11] MEDS ORDERED: FUROSEMIDE 40 MG TABLET (FP) PO SCH (10:00)
[2024-08-11] MEDS ORDERED: PANTOPRAZOLE 40 MG TABLET PO SCH (10:00)
[2024-08-11] MEDS ORDERED: amLODIPine BESYLATE 10 MG TABLET (FP) PO SCH (10:00)
[2024-08-11] MEDS ORDERED: POTASSIUM CHLORIDE TABS 20 MEQ TABLET.ER (FP) PO SCH (10:00)
[2024-08-11] MEDS: FUROSEMIDE 40 MG/4 ML INJECTABLE VIAL IVPUSH ONE (14:31)
[2024-08-11 17:02] LABS: BASO % 0.7 % (0-2.0); EOS % 3.1 % (0-4.5); HEMATOCRIT 24.3 % (35.4-49); HEMOGLOBIN 8.1 GM/dL (11.7-16.9); LYMPH % 16.5 % (8-40); MCH 27.1 pg (25.7-33.7); MCHC 33.5 g/dl (32.0-35.9); MEAN CELL VOLUME 80.8 fl (80-96); MEAN PLT VOLUME 6.7 fl (7.5-11.1); MONO % 10.5 % (3.8-10.2); NEUT % 69.2 % (42.8-82.8); PLATELET COUNT 507 10^3/uL (134-434); RBC 3.01 M/mm3 (4.00-5.60); RDW 16.2 % (11.9-15.9)
[2024-08-12] MEDS: FUROSEMIDE 40 MG TABLET (FP) PO SCH (09:43)
[2024-08-12 11:10] LABS: HEMATOCRIT 23.3 % (35.4-49); HEMOGLOBIN 7.7 GM/dL (11.7-16.9); MCH 27.4 pg (25.7-33.7); MEAN CELL VOLUME 83.2 fl (80-96); MEAN PLT VOLUME 7.6 fl (7.5-11.1)
[2024-08-12 11:42] LABS: POTASSIUM 4.6 mmol/L (3.5-5.1)
[2024-08-12 11:46] LABS: ALBUMIN 1.7 g/dl (3.4-5.0); BLOOD UREA NITROGEN 14.9 mg/dL (7-18); CALCIUM 8.4 mg/dL (8.5-10.1); MAGNESIUM 1.7 mg/dL (1.8-2.4)
[2024-08-12 11:50] LABS: BILIRUBIN,TOTAL 0.5 mg/dL (0.2-1); CREATININE 1.3 mg/dL (0.55-1.3); PHOSPHOROUS 3.3 mg/dL (2.5-4.9)
[2024-08-12 12:29] LABS: PLATELET COUNT 233 10^3/uL (134-434)
[2024-08-12] MEDS: ACETAMINOPHEN 500 MG TABLET (FP) PO PRN (15:29)
[2024-08-13 09:22] LABS: BASO % 0.7 % (0-2.0); EOS % 4.9 % (0-4.5); HEMATOCRIT 22.3 % (35.4-49); HEMOGLOBIN 7.5 GM/dL (11.7-16.9); LYMPH % 13.2 % (8-40); MCH 27.5 pg (25.7-33.7); MCHC 33.4 g/dl (32.0-35.9); MEAN CELL VOLUME 82.2 fl (80-96); MEAN PLT VOLUME 7.3 fl (7.5-11.1); MONO % 9.5 % (3.8-10.2); NEUT % 71.7 % (42.8-82.8); PLATELET COUNT 366 10^3/uL (134-434); RBC 2.72 M/mm3 (4.00-5.60); RDW 15.8 % (11.9-15.9); WHITE BLOOD COUNT 11.7 K/mm3 (4.0-10.0)
[2024-08-13 09:35] LABS: POTASSIUM 4.1 mmol/L (3.5-5.1)
[2024-08-13 09:41] LABS: CALCIUM 8.4 mg/dL (8.5-10.1)
[2024-08-13 09:43] LABS: MAGNESIUM 1.9 mg/dL (1.8-2.4)
[2024-08-13 09:44] LABS: BLOOD UREA NITROGEN 13.9 mg/dL (7-18)
[2024-08-13 09:48] LABS: CREATININE 1.2 mg/dL (0.55-1.3); PHOSPHOROUS 3.2 mg/dL (2.5-4.9)
[2024-08-13] MEDS ORDERED: FUROSEMIDE 40 MG/4 ML INJECTABLE VIAL IVPUSH ONE (11:39)
[2024-08-13] MEDS: MAGNESIUM 2GM/50ML STERILE WATER IVPB IVPB ONE (12:29)
[2024-08-13] MEDS ORDERED: MAGNESIUM SULF 50% (8.12 MEQ/2 ML-1 GM VIAL) IVPB ONE (12:30)
[2024-08-13 15:59] LABS: HEMATOCRIT 24.5 % (35.4-49); HEMOGLOBIN 8.1 GM/dL (11.7-16.9); MCH 26.9 pg (25.7-33.7); MEAN CELL VOLUME 81.7 fl (80-96); MEAN PLT VOLUME 7.1 fl (7.5-11.1); PLATELET COUNT 415 10^3/uL (134-434); RDW 15.9 % (11.9-15.9); WHITE BLOOD COUNT 13.8 K/mm3 (4.0-10.0)
[2024-08-13] MEDS: FUROSEMIDE 40 MG/4 ML INJECTABLE VIAL IVPUSH ONE ×2 (22:06→22:22)
[2024-08-13] MEDS: VANCOMYCIN/WATER 1250 MG 1,250 MG/250 ML BAG IVPB SCH (22:22)
[2024-08-14] MEDS: VANCOMYCIN HCL 1250 MG IVPB ONE
[2024-08-14 08:00] LABS: HEMATOCRIT 25.3 % (35.4-49); HEMOGLOBIN 8.6 GM/dL (11.7-16.9); MCH 27.9 pg (25.7-33.7); MEAN CELL VOLUME 81.9 fl (80-96); MEAN PLT VOLUME 7.2 fl (7.5-11.1); PLATELET COUNT 390 10^3/uL (134-434); RBC 3.09 M/mm3 (4.00-5.60); RDW 15.8 % (11.9-15.9); WHITE BLOOD COUNT 12.1 K/mm3 (4.0-10.0)
[2024-08-14 08:30] LABS: POTASSIUM 4.5 mmol/L (3.5-5.1)
[2024-08-14 08:43] LABS: ALBUMIN 1.7 g/dl (3.4-5.0); BLOOD UREA NITROGEN 16.9 mg/dL (7-18); CALCIUM 8.4 mg/dL (8.5-10.1)
[2024-08-14 08:46] LABS: CREATININE 1.3 mg/dL (0.55-1.3); PHOSPHOROUS 3.4 mg/dL (2.5-4.9)
[2024-08-14 08:47] LABS: BILIRUBIN,TOTAL 0.6 mg/dL (0.2-1); TOT PROT 7.3 g/dl (6.4-8.2)
[2024-08-14] MEDS ORDERED: PROPOFOL 20 ML ONE (10:26)
[2024-08-14] MEDS ORDERED: ROCURONIUM BROMIDE 50 MG/5 ML SYRINGE ONE (10:26)
[2024-08-14] MEDS ORDERED: MIDAZOLAM HCL 2 MG/2 ML SINGLE DOSE VIAL ONE (10:26)
[2024-08-14] MEDS ORDERED: BUPIVACAINE HCL/PF 0.5% (5MG/ML) 10 ML VIAL ONE (10:31)
[2024-08-14] MEDS ORDERED: LIDOCAINE HCL 1%, 10 MG/ML (20ML VIAL) ONE (10:31)
[2024-08-14] MEDS ORDERED: ONDANSETRON 4 MG/2 ML VIAL ONE (12:35)
[2024-08-14] MEDS ORDERED: SUGAMMADEX SODIUM 200 MG/2 ML VIAL ONE ×2 (12:35→12:36)
[2024-08-14] MEDS ORDERED: ONDANSETRON 4 MG/2 ML VIAL IVPUSH PRN (13:30)
[2024-08-14] MEDS: LACTATED RINGERS SOLUTION 1,000 ML IV SCH (14:14)
[2024-08-14] MEDS ORDERED: KETOROLAC TROMETHAMINE 15 MG/ML VIAL IVPUSH PRN (16:14)
[2024-08-14] MEDS: ACETAMINOPHEN 1000 MG/100 ML BAG IVPB SCH (17:26)
[2024-08-15 16:20] LABS: HEMATOCRIT 29.2 % (35.4-49); HEMOGLOBIN 8.8 GM/dL (11.7-16.9); MCH 25.5 pg (25.7-33.7); MEAN CELL VOLUME 84.9 fl (80-96); MEAN PLT VOLUME 7.3 fl (7.5-11.1); PLATELET COUNT 273 10^3/uL (134-434); RBC 3.44 M/mm3 (4.00-5.60); RDW 16.3 % (11.9-15.9); WHITE BLOOD COUNT 14.4 K/mm3 (4.0-10.0)
[2024-08-15 19:10] LABS: CALCIUM 8.7 mg/dL (8.5-10.1); CREATININE 1.3 mg/dL (0.55-1.3); PHOSPHOROUS 4.1 mg/dL (2.5-4.9); POTASSIUM 5.4 mmol/L (3.5-5.1); TOT PROT 7.7 g/dl (6.4-8.2)
[2024-08-15 19:11] LABS: ALBUMIN 1.9 g/dl (3.4-5.0); BILIRUBIN,TOTAL 0.5 mg/dL (0.2-1)
[2024-08-15] MEDS: ASCORBIC ACID 500 MG TABLET (FP) PO SCH (22:22)
[2024-08-16 07:57] LABS: HEMATOCRIT 25.6 % (35.4-49); HEMOGLOBIN 8.7 GM/dL (11.7-16.9); MCH 27.9 pg (25.7-33.7); MEAN CELL VOLUME 81.9 fl (80-96); MEAN PLT VOLUME 7.1 fl (7.5-11.1); PLATELET COUNT 359 10^3/uL (134-434); RBC 3.12 M/mm3 (4.00-5.60); RDW 16.1 % (11.9-15.9); WHITE BLOOD COUNT 12.3 K/mm3 (4.0-10.0)
[2024-08-16 08:19] LABS: POTASSIUM 4.3 mmol/L (3.5-5.1)
[2024-08-16 08:25] LABS: ALBUMIN 1.8 g/dl (3.4-5.0); CALCIUM 8.6 mg/dL (8.5-10.1)
[2024-08-16 08:26] LABS: BLOOD UREA NITROGEN 20.3 mg/dL (7-18); MAGNESIUM 2.2 mg/dL (1.8-2.4)
[2024-08-16 08:29] LABS: BILIRUBIN,TOTAL 0.5 mg/dL (0.2-1); CREATININE 1.4 mg/dL (0.55-1.3); TOT PROT 7.3 g/dl (6.4-8.2)
[2024-08-16] MEDS: MULTIVITAMINS (DAILY MVI) TABLET (FP) PO SCH (10:41)
[2024-08-16] MEDS: ZINC SULFATE 220 MG CAPSULE (FP) PO SCH (10:42)
[2024-08-16] MEDS: AMINO ACIDS/PROTEIN HYDROLYS 30 ML LIQUID.PKT PO SCH (14:36)
[2024-08-16] MEDS: HEPARIN NA (PORCINE) 5,000 UNITS/ML 1ML VIAL SQ SCH (22:27)
[2024-08-17 09:39] LABS: HEMATOCRIT 24.1 % (35.4-49); HEMOGLOBIN 7.9 GM/dL (11.7-16.9); MCH 27.1 pg (25.7-33.7); MCHC 32.6 g/dl (32.0-35.9); MEAN CELL VOLUME 83.1 fl (80-96); PLATELET COUNT 334 10^3/uL (134-434); RDW 16.2 % (11.9-15.9); WHITE BLOOD COUNT 11.3 K/mm3 (4.0-10.0)
[2024-08-17 09:54] LABS: POTASSIUM 3.8 mmol/L (3.5-5.1)
[2024-08-17 10:32] LABS: ALBUMIN 1.8 g/dl (3.4-5.0)
[2024-08-17 10:33] LABS: CALCIUM 8.8 mg/dL (8.5-10.1)
[2024-08-17 10:43] LABS: BILIRUBIN,TOTAL 0.4 mg/dL (0.2-1); BLOOD UREA NITROGEN 22.9 mg/dL (7-18); CREATININE 1.3 mg/dL (0.55-1.3); MAGNESIUM 2.1 mg/dL (1.8-2.4); PHOSPHOROUS 3.9 mg/dL (2.5-4.9)
[2024-08-18 09:52] LABS: HEMOGLOBIN 8.1 GM/dL (11.7-16.9); MCH 27.6 pg (25.7-33.7); MCHC 33.8 g/dl (32.0-35.9); MEAN CELL VOLUME 81.8 fl (80-96); PLATELET COUNT 338 10^3/uL (134-434); RBC 2.94 M/mm3 (4.00-5.60); WHITE BLOOD COUNT 10.7 K/mm3 (4.0-10.0)
[2024-08-18] MEDS ORDERED: TRIPLE LUMEN FLUSH 4 ML ML IVPUSH PRN (09:57)
[2024-08-18] MEDS ORDERED: SENNOSIDES 8.6MG TABLET (FP) PO PRN (09:57)
[2024-08-18 10:09] LABS: POTASSIUM 4.3 mmol/L (3.5-5.1)
[2024-08-18 10:12] LABS: ALBUMIN 1.7 g/dl (3.4-5.0); BLOOD UREA NITROGEN 25.3 mg/dL (7-18); CALCIUM 8.6 mg/dL (8.5-10.1); MAGNESIUM 2.1 mg/dL (1.8-2.4)
[2024-08-18 10:15] LABS: CREATININE 1.3 mg/dL (0.55-1.3); PHOSPHOROUS 3.7 mg/dL (2.5-4.9)
[2024-08-18 10:17] LABS: BILIRUBIN,TOTAL 0.3 mg/dL (0.2-1)
[2024-08-18] MEDS: hydrALAZINE HCL 25 MG TABLET (FP) PO SCH (10:59)
[2024-08-18] MEDS: POTASSIUM CHLORIDE TABS 20 MEQ TABLET.ER (FP) PO SCH (12:55)
[2024-08-18] MEDS: FUROSEMIDE 40 MG TABLET (FP) PO SCH (12:55)
[2024-08-18] MEDS: GABAPENTIN 400 MG CAPSULE PO SCH (12:55)
[2024-08-18] MEDS: PANTOPRAZOLE 40 MG TABLET PO SCH (12:56)
[2024-08-18] MEDS: amLODIPine BESYLATE 10 MG TABLET (FP) PO SCH (12:56)
[2024-08-18] MEDS: oxyCODONE HCL 5 MG TABLET PO PRN (21:15)
[2024-08-19] MEDS: TAMSULOSIN HCL 0.4 MG CAP PO SCH (08:28)
[2024-08-19 10:07] LABS: HEMATOCRIT 23.7 % (35.4-49); MCH 27.8 pg (25.7-33.7); MCHC 33.6 g/dl (32.0-35.9); MEAN CELL VOLUME 82.6 fl (80-96); MEAN PLT VOLUME 7.1 fl (7.5-11.1); PLATELET COUNT 321 10^3/uL (134-434); RBC 2.87 M/mm3 (4.00-5.60); WHITE BLOOD COUNT 9.1 K/mm3 (4.0-10.0)
[2024-08-19 10:18] LABS: ALBUMIN 1.8 g/dl (3.4-5.0)
[2024-08-19 10:21] LABS: CREATININE 1.1 mg/dL (0.55-1.3); PHOSPHOROUS 3.3 mg/dL (2.5-4.9)
[2024-08-19 10:23] LABS: BILIRUBIN,TOTAL 0.3 mg/dL (0.2-1); TOT PROT 7.1 g/dl (6.4-8.2)
[2024-08-19 10:50] LABS: POTASSIUM 4.1 mmol/L (3.5-5.1)
[2024-08-19 11:02] LABS: CALCIUM 8.9 mg/dL (8.5-10.1)
[2024-08-20 09:00] LABS: BASO % 0.7 % (0-2.0); EOS % 3.5 % (0-4.5); HEMOGLOBIN 8.3 GM/dL (11.7-16.9); LYMPH % 30.9 % (8-40); MCH 28.2 pg (25.7-33.7); MCHC 34.5 g/dl (32.0-35.9); MEAN CELL VOLUME 81.6 fl (80-96); MEAN PLT VOLUME 7.2 fl (7.5-11.1); MONO % 9.2 % (3.8-10.2); NEUT % 55.7 % (42.8-82.8); PLATELET COUNT 328 10^3/uL (134-434); RBC 2.95 M/mm3 (4.00-5.60); RDW 16.1 % (11.9-15.9); WHITE BLOOD COUNT 9.7 K/mm3 (4.0-10.0)
[2024-08-20 09:33] LABS: POTASSIUM 4.6 mmol/L (3.5-5.1)
[2024-08-20 09:35] LABS: ALBUMIN 1.9 g/dl (3.4-5.0); BLOOD UREA NITROGEN 25.2 mg/dL (7-18)
[2024-08-20 09:38] LABS: CREATININE 1.1 mg/dL (0.55-1.3); PHOSPHOROUS 3.4 mg/dL (2.5-4.9)
[2024-08-20 09:39] LABS: BILIRUBIN,TOTAL 0.3 mg/dL (0.2-1); TOT PROT 7.4 g/dl (6.4-8.2)
[2024-08-21 08:15] LABS: HEMATOCRIT 25.1 % (35.4-49); HEMOGLOBIN 8.5 GM/dL (11.7-16.9); MCH 28.1 pg (25.7-33.7); MEAN CELL VOLUME 82.6 fl (80-96); PLATELET COUNT 329 10^3/uL (134-434); RBC 3.04 M/mm3 (4.00-5.60); RDW 16.4 % (11.9-15.9); WHITE BLOOD COUNT 9.6 K/mm3 (4.0-10.0)
[2024-08-21 08:28] LABS: POTASSIUM 4.9 mmol/L (3.5-5.1)
[2024-08-21 08:31] LABS: CALCIUM 9.2 mg/dL (8.5-10.1); MAGNESIUM 1.9 mg/dL (1.8-2.4)
[2024-08-21 08:32] LABS: BLOOD UREA NITROGEN 27.7 mg/dL (7-18)
[2024-08-21 08:34] LABS: PHOSPHOROUS 3.8 mg/dL (2.5-4.9)
[2024-08-21 08:35] LABS: CREATININE 1.2 mg/dL (0.55-1.3)
[2024-08-21 08:36] LABS: BILIRUBIN,TOTAL 0.3 mg/dL (0.2-1); TOT PROT 7.5 g/dl (6.4-8.2)
[2024-08-22 06:48] LABS: BASO % 0.6 % (0-2.0); HEMATOCRIT 24.1 % (35.4-49); HEMOGLOBIN 8.2 GM/dL (11.7-16.9); LYMPH % 33.6 % (8-40); MCH 27.8 pg (25.7-33.7); MCHC 33.9 g/dl (32.0-35.9); MEAN CELL VOLUME 82.1 fl (80-96); MEAN PLT VOLUME 6.9 fl (7.5-11.1); MONO % 9.3 % (3.8-10.2); NEUT % 53.5 % (42.8-82.8); PLATELET COUNT 311 10^3/uL (134-434); RBC 2.93 M/mm3 (4.00-5.60); RDW 16.6 % (11.9-15.9)
[2024-08-22 07:14] LABS: POTASSIUM 4.4 mmol/L (3.5-5.1)
[2024-08-22 07:17] LABS: BLOOD UREA NITROGEN 30.8 mg/dL (7-18); CALCIUM 9.5 mg/dL (8.5-10.1); MAGNESIUM 1.9 mg/dL (1.8-2.4)
[2024-08-22 07:18] LABS: ALBUMIN 1.9 g/dl (3.4-5.0)
[2024-08-22 07:20] LABS: CREATININE 1.2 mg/dL (0.55-1.3)
[2024-08-22 07:21] LABS: PHOSPHOROUS 4.1 mg/dL (2.5-4.9)
[2024-08-22 07:22] LABS: BILIRUBIN,TOTAL 0.4 mg/dL (0.2-1); TOT PROT 7.2 g/dl (6.4-8.2)
[2024-08-22] MEDS: MELATONIN 5 MG TABLETS PO ONE (21:09)
[2024-08-23 06:30] LABS: BASO % 1.2 % (0-2.0); HEMATOCRIT 24.8 % (35.4-49); HEMOGLOBIN 8.4 GM/dL (11.7-16.9); LYMPH % 38.7 % (8-40); MCH 27.7 pg (25.7-33.7); MCHC 33.8 g/dl (32.0-35.9); MEAN CELL VOLUME 82.2 fl (80-96); MEAN PLT VOLUME 7.4 fl (7.5-11.1); MONO % 9.6 % (3.8-10.2); NEUT % 46.5 % (42.8-82.8); PLATELET COUNT 286 10^3/uL (134-434); RBC 3.02 M/mm3 (4.00-5.60); RDW 16.5 % (11.9-15.9); WHITE BLOOD COUNT 11.7 K/mm3 (4.0-10.0)
[2024-08-23 06:42] LABS: INR 1.18 (0.83-1.09); PROTHROMBIN TIME (PATIENT) 12.9 SEC (9.7-13.0)
[2024-08-23 06:50] LABS: POTASSIUM 4.7 mmol/L (3.5-5.1)
[2024-08-23 06:53] LABS: BLOOD UREA NITROGEN 37.4 mg/dL (7-18); MAGNESIUM 1.9 mg/dL (1.8-2.4)
[2024-08-23 06:56] LABS: CREATININE 1.3 mg/dL (0.55-1.3); PHOSPHOROUS 4.5 mg/dL (2.5-4.9)
[2024-08-23 06:58] LABS: BILIRUBIN,TOTAL 0.5 mg/dL (0.2-1); TOT PROT 7.4 g/dl (6.4-8.2)
[2024-08-23] MEDS: LIDOCAINE HCL 1%, 10 MG/ML (50 mL VIAL) INF ONE (10:00)
[2024-08-23] MEDS ORDERED: ONDANSETRON 4 MG/2 ML VIAL IVPUSH PRN ×2 (10:00→12:26)
[2024-08-23] MEDS ORDERED: PROPOFOL 20 ML ONE (10:06)
[2024-08-23] MEDS ORDERED: MIDAZOLAM HCL 2 MG/2 ML SINGLE DOSE VIAL ONE (10:06)
[2024-08-23] MEDS ORDERED: ONDANSETRON 4 MG/2 ML VIAL ONE (10:36)
[2024-08-23] MEDS ORDERED: DEXAMETHASONE SOD PHOSPHATE 4 MG/1 ML VIAL ONE (10:36)
[2024-08-23] MEDS ORDERED: KETOROLAC TROMETHAMINE 30 MG/1 ML VIAL ONE (10:37)
[2024-08-23] MEDS ORDERED: ceFAZolin SODIUM 1 GM VIAL ONE (10:41)
[2024-08-23] MEDS: ceFAZolin SODIUM 1 GM VIAL IVPB ONE (10:45)
[2024-08-23] MEDS ORDERED: TRIPLE LUMEN FLUSH 4 ML ML IVPUSH PRN (12:26)
[2024-08-23] MEDS ORDERED: SENNOSIDES 8.6MG TABLET (FP) PO PRN (12:26)
[2024-08-23] MEDS: LACTATED RINGERS SOLUTION 1,000 ML IV SCH ×2 (14:29→14:37)
[2024-08-23] MEDS: oxyCODONE HCL 5 MG TABLET PO PRN (15:36)
[2024-08-23] MEDS: HEPARIN NA (PORCINE) 5,000 UNITS/ML 1ML VIAL SQ SCH (15:41)
[2024-08-23 15:58] VITALS: RESP 18
[2024-08-23] MEDS: CEFAZOLIN 2 GM/D5W 2 GM/50 ML ML IVPB SCH (17:51)
[2024-08-23 19:28] LABS: BASO % 0.3 % (0-2.0); HEMOGLOBIN 8.5 GM/dL (11.7-16.9); LYMPH % 13.2 % (8-40); MCH 28.1 pg (25.7-33.7); MCHC 33.9 g/dl (32.0-35.9); MEAN CELL VOLUME 82.7 fl (80-96); MEAN PLT VOLUME 6.9 fl (7.5-11.1); MONO % 2.7 % (3.8-10.2); NEUT % 83.8 % (42.8-82.8); PLATELET COUNT 286 10^3/uL (134-434); RBC 3.02 M/mm3 (4.00-5.60); RDW 16.4 % (11.9-15.9); WHITE BLOOD COUNT 12.3 K/mm3 (4.0-10.0)
[2024-08-23 19:47] LABS: POTASSIUM 4.9 mmol/L (3.5-5.1)
[2024-08-23 19:50] LABS: CALCIUM 8.8 mg/dL (8.5-10.1)
[2024-08-23 19:51] LABS: BLOOD UREA NITROGEN 40.4 mg/dL (7-18)
[2024-08-23 19:54] LABS: CREATININE 1.5 mg/dL (0.55-1.3)
[2024-08-23] MEDS: GABAPENTIN 400 MG CAPSULE PO SCH (21:25)
[2024-08-23] MEDS: hydrALAZINE HCL 25 MG TABLET (FP) PO SCH (21:26)
[2024-08-23] MEDS: ASCORBIC ACID 500 MG TABLET (FP) PO SCH (21:26)
[2024-08-24 07:08] LABS: POTASSIUM 4.5 mmol/L (3.5-5.1)
[2024-08-24 07:12] LABS: CALCIUM 8.7 mg/dL (8.5-10.1)
[2024-08-24 07:14] LABS: BLOOD UREA NITROGEN 41.7 mg/dL (7-18)
[2024-08-24 07:15] LABS: CREATININE 1.3 mg/dL (0.55-1.3); PHOSPHOROUS 4.4 mg/dL (2.5-4.9)
[2024-08-24 07:18] LABS: BILIRUBIN,TOTAL 0.4 mg/dL (0.2-1)
[2024-08-24 08:16] LABS: BASO % 0.2 % (0-2.0); HEMOGLOBIN 8.9 GM/dL (11.7-16.9); LYMPH % 26.4 % (8-40); MCH 28.5 pg (25.7-33.7); MCHC 34.3 g/dl (32.0-35.9); MEAN CELL VOLUME 83.1 fl (80-96); MEAN PLT VOLUME 7.6 fl (7.5-11.1); MONO % 7.2 % (3.8-10.2); NEUT % 66.2 % (42.8-82.8); PLATELET COUNT 261 10^3/uL (134-434); RBC 3.13 M/mm3 (4.00-5.60); RDW 15.8 % (11.9-15.9); WHITE BLOOD COUNT 11.5 K/mm3 (4.0-10.0)
[2024-08-24] MEDS: POTASSIUM CHLORIDE TABS 20 MEQ TABLET.ER (FP) PO SCH (10:20)
[2024-08-24] MEDS: TAMSULOSIN HCL 0.4 MG CAP PO SCH (10:21)
[2024-08-24] MEDS: AMINO ACIDS/PROTEIN HYDROLYS 30 ML LIQUID.PKT PO SCH (10:21)
[2024-08-24] MEDS: MULTIVITAMINS (DAILY MVI) TABLET (FP) PO SCH (10:21)
[2024-08-24] MEDS: ZINC SULFATE 220 MG CAPSULE (FP) PO SCH (10:22)
[2024-08-24] MEDS: FUROSEMIDE 40 MG TABLET (FP) PO SCH (10:22)
[2024-08-24] MEDS: PANTOPRAZOLE 40 MG TABLET PO SCH (10:22)
[2024-08-24] MEDS: amLODIPine BESYLATE 10 MG TABLET (FP) PO SCH (10:22)
[2024-08-25 14:23] VITALS: BP 99/54; PULSE 89; TEMP 98.6
== END 2024-08-25 15:28 | DRG 853 ==
LOC: JER 13:06 → JERBED 18:37 → JICU 07-24 04:40 → J7W 07-27 14:59 → J4S 07-31 17:39
PROVIDERS: ADMIT Student in an Organized Health Care Education/Training Program; ATTEND Internal Medicine
PROC: 05H633Z Insertion of Infusion Device into Left Subclavian Vein, Percutaneous Approach (ICD-10-PCS; principal; 2024-07-24)
PROC: 0FC98ZZ Extirpation of Matter from Common Bile Duct, Via Natural or Artificial Opening Endoscopic (ICD-10-PCS; 2024-07-26)
PROC: 0F798DZ Dilation of Common Bile Duct with Intraluminal Device, Via Natural or Artificial Opening Endoscopic (ICD-10-PCS; 2024-07-26)
PROC: 0FT44ZZ Resection of Gallbladder, Percutaneous Endoscopic Approach (ICD-10-PCS; 2024-07-28)
PROC: 05HF33Z Insertion of Infusion Device into Left Cephalic Vein, Percutaneous Approach (ICD-10-PCS; 2024-07-30)
PROC: B54NZZA Ultrasonography of Left Upper Extremity Veins, Guidance (ICD-10-PCS; 2024-07-30)
PROC: 0W9G30Z Drainage of Peritoneal Cavity with Drainage Device, Percutaneous Approach (ICD-10-PCS; 2024-08-04)
PROC: 30233N1 Transfusion of Nonautologous Red Blood Cells into Peripheral Vein, Percutaneous Approach (ICD-10-PCS; 2024-08-06)
PROC: 0J9N0ZZ Drainage of Right Lower Leg Subcutaneous Tissue and Fascia, Open Approach (ICD-10-PCS; 2024-08-10)
PROC: 0HBKXZZ Excision of Right Lower Leg Skin, External Approach (ICD-10-PCS; 2024-08-10)
PROC: 0JBN0ZZ Excision of Right Lower Leg Subcutaneous Tissue and Fascia, Open Approach (ICD-10-PCS; 2024-08-14)
PROC: 2W1LX6Z Compression of Right Lower Extremity using Pressure Dressing (ICD-10-PCS; 2024-08-14)
PROC: 0HRKXK4 Replacement of Right Lower Leg Skin with Nonautologous Tissue Substitute, Partial Thickness, External Approach (ICD-10-PCS; 2024-08-23)
PROC: 0KBS0ZZ Excision of Right Lower Leg Muscle, Open Approach (ICD-10-PCS; 2024-08-23)
DX: A41.89 Other specified sepsis (principal); E43 Unspecified severe protein-calorie malnutrition; G93.41 Metabolic encephalopathy; R65.21 Severe sepsis with septic shock; R53.2 Functional quadriplegia; N17.9 Acute kidney failure, unspecified; K80.30 Calculus of bile duct with cholangitis, unspecified, without obstruction; Z68.41 Body mass index [BMI] 40.0-44.9, adult; E87.20 Acidosis, unspecified; J98.11 Atelectasis; K92.2 Gastrointestinal hemorrhage, unspecified; E87.0 Hyperosmolality and hypernatremia; D62 Acute posthemorrhagic anemia; L03.115 Cellulitis of right lower limb; E87.1 Hypo-osmolality and hyponatremia; I96 Gangrene, not elsewhere classified; I24.89 Other forms of acute ischemic heart disease; L97.818 Non-pressure chronic ulcer of other part of right lower leg with other specified severity; E80.6 Other disorders of bilirubin metabolism; I83.018 Varicose veins of right lower extremity with ulcer other part of lower leg; R41.82 Altered mental status, unspecified; N40.0 Benign prostatic hyperplasia without lower urinary tract symptoms; K59.00 Constipation, unspecified; R00.0 Tachycardia, unspecified; G62.9 Polyneuropathy, unspecified; E78.5 Hyperlipidemia, unspecified; B18.2 Chronic viral hepatitis C; K21.9 Gastro-esophageal reflux disease without esophagitis; I48.91 Unspecified atrial fibrillation; E66.01 Morbid (severe) obesity due to excess calories; I12.9 Hypertensive chronic kidney disease with stage 1 through stage 4 chronic kidney disease, or unspecified chronic kidney disease; N18.9 Chronic kidney disease, unspecified; D47.3 Essential (hemorrhagic) thrombocythemia; Z21 Asymptomatic human immunodeficiency virus [HIV] infection status; B96.20 Unspecified Escherichia coli [E. coli] as the cause of diseases classified elsewhere; Z94.5 Skin transplant status; S81.801A Unspecified open wound, right lower leg, initial encounter; X58.XXXA Exposure to other specified factors, initial encounter; Y93.9 Activity, unspecified; Y92.9 Unspecified place or not applicable; Y99.9 Unspecified external cause status
CPT/HCPCS: 0241U-QW; 36415; 36430; 49406; 70450-TC; 71045-TC-FY; 71250-TC; 71260-TC; 73701-TC-RT; 74176-TC; 74177-TC; 76000-TC-FY; 76700-TC; 78226-TC; 80048; 80053; 80076; 81003; 82140; 82272; 82308; 82550; 82553; 82803; 82962; 83605; 83615; 83735; 84100; 84484; 85025; 85027; 85610; 85651; 85730; 86140; 86359; 86360; 86704; 86708; 86803; 86850; 86900; 86901; 86922; 87040; 87070; 87075; 87081; 87086; 87186; 87205; 87324; 87340; 87449; 87517; 87522; 87536; 87633; 88300-TC; 88304-TC; 93005; 93010; 93306-TC; 93970-TC; 93971; 94010; 94760; 97161-GP; 99291; A4100; A9537; G0480; J0131; J1644; P9058; Q9967

== ENCOUNTER 2025-01-20 01:50 | Inpatient (IN) | payer OTHER ==
[2025-01-20] MEDS ORDERED: PANTOPRAZOLE SODIUM 40 MG VIAL ONE (02:19)
[2025-01-20] MEDS ORDERED: dilTIAZem HCL 50 MG/10 ML - 10 ML VIAL ONE (02:20)
[2025-01-20 02:33] LABS: MCHC 32.2 g/dl (32.3-36.5); MEAN CELL VOLUME 83.2 fl (79.0-92.2); MEAN PLT VOLUME 9.5 fl (9.4-12.4); RDW 17.4 % (12.2-16.6)
[2025-01-20 02:54] LABS: CO2 25.0 mmol/L (21-32); GLUCOSE,RANDOM 151.0 mg/dL (74-106)
[2025-01-20] MEDS: PANTOPRAZOLE SODIUM 40 MG VIAL IVPUSH ONE (02:54)
[2025-01-20] MEDS: dilTIAZem HCL 50 MG/10 ML - 10 ML VIAL IVPUSH ONE (02:54)
[2025-01-20 02:56] LABS: ARTERIAL BLD GAS O2 SATURATION 90.9 % (95-98); ARTERIAL BLOOD GAS BASE EXCESS -5.5 mmol/L (-2-2); ARTERIAL BLOOD GAS PCO2 44.30 mmHg (35-45); ARTERIAL BLOOD GAS PO2 66.2 mmHg (80-100); BG HCT 34.0 % (35.4-49); O2 CONTENT 1.46 % vol
[2025-01-20 02:58] LABS: CREATININE 1.1 mg/dL (0.55-1.3); SGOT/AST 38.0 U/L (15-37); SGPT/ALT 25.0 U/L (13-61)
[2025-01-20 02:58] LABS: ALLENS TEST POSITIVE
[2025-01-20 02:59] LABS: TOT PROT 8.6 g/dl (6.4-8.2)
[2025-01-20 03:00] LABS: ALK PHOS 130.0 U/L (45-117)
[2025-01-20 03:12] LABS: LACTIC ACID 3.1 mmol/L (0.4-2.0)
[2025-01-20] MEDS ORDERED: LACTATED RINGERS SOLUTION 1000 ML INFUS.BAG IV ONE (03:14)
[2025-01-20] MEDS ORDERED: PIPERACILLIN/TAZOB 3.375 GM 3.375 GM/50 ML BAG IVPB ONE (03:21)
[2025-01-20] MEDS: SODIUM CHLORIDE 0.9% 500 ML INFUS.BAG IV ONE (03:50)
[2025-01-20] MEDS: PIPERACILLIN/TAZOB 3.375 GM 3.375 GM in DEXTROSE 5%-WATER - 50 ML IVPB ONE (03:50)
[2025-01-20] MEDS ORDERED: OCTREOTIDE ACETATE 100 MCG/1 ML ONE (03:52)
[2025-01-20] MEDS: OCTREOTIDE ACETATE 50 MCG/1 ML - 1 ML VIAL IVPUSH ONE (03:53)
[2025-01-20] MEDS ORDERED: VANCOMYCIN 1 GM PREMIX (F) 1 GM/200 ML BAG ONE (06:00)
[2025-01-20] MEDS: VANCOMYCIN 1,000 MG in DEXTROSE 5%-WATER - 250 ML IVPB ONE (06:25)
[2025-01-20 06:48] LABS: EPI CELLS 9 /uL (0-25.1); HYALINE CASTS 0 /uL (0-3.1); URINE APPEARANCE CLEAR; URINE BACTERIA 2399 /uL (0-1359); URINE BILIRUBIN NEGATIVE (NEGATIVE); URINE COLOR YELLOW; URINE GLUCOSE (UA) TRACE (NEGATIVE); URINE KETONE NEGATIVE (NEGATIVE); URINE LEUK ESTERASE TRACE (NEGATIVE); URINE NITRITE NEGATIVE (NEGATIVE); URINE PROTEIN 1+ (NEGATIVE); URINE RBC 13 /uL (0-23.9); URINE UROBILINOGEN 1.0 mg/dL (0.2-1.0); URINE WBC 10 /uL (0-25.8)
[2025-01-20] MEDS ORDERED: LACTULOSE 20 GM/30 ML UDC (FOR ORAL USE ONLY) PO ONE (09:30)
[2025-01-20] MEDS: LACTATED RINGERS SOLUTION 1,000 ML/1,000 ML INFUS.BAG IV SCH (11:28)
[2025-01-20] MEDS: HEPARIN NA (PORCINE) 5,000 UNITS/ML 1ML VIAL SQ SCH (11:29)
[2025-01-20] MEDS: PANTOPRAZOLE SODIUM 40 MG VIAL IVPUSH SCH (11:29)
[2025-01-20] MEDS: PIPERACILLIN/TAZOB 4.5 GM 4.5 GM in DEXTROSE 5%-WATER 100 ML IVPB SCH (11:29)
[2025-01-20 13:32] VITALS: BMI 33.9
[2025-01-20] MEDS: LACTULOSE 20 GM/30 ML UDC (FOR ORAL USE ONLY) PO SCH (14:22)
[2025-01-20] MEDS: HALOPERIDOL LACTATE 5 MG/ML IVPUSH ONE (16:24)
[2025-01-20] MEDS: HALOPERIDOL LACTATE 5 MG/ML IM PRN (17:29)
[2025-01-21 06:51] LABS: MCHC 32.7 g/dl (32.3-36.5); MEAN CELL VOLUME 82.9 fl (79.0-92.2); MEAN PLT VOLUME 10.3 fl (9.4-12.4); RDW 16.9 % (12.2-16.6)
[2025-01-21 07:28] LABS: CO2 24.0 mmol/L (21-32); GLUCOSE,RANDOM 103.0 mg/dL (74-106)
[2025-01-21 07:31] LABS: CREATININE 0.8 mg/dL (0.55-1.3)
[2025-01-21] MEDS: diazePAM CARPU-JECT 10 MG/2 ML DISP.SYRIN IVPUSH PRN (09:21)
[2025-01-21] MEDS: SODIUM CHLORIDE 1,000 ML IV SCH (10:01)
[2025-01-22 09:20] LABS: BASOPHILS # 0.03 x10^3/uL (0.01-0.08)
[2025-01-22 09:25] LABS: MCHC 33.8 g/dl (32.3-36.5)
[2025-01-22 09:27] LABS: ABSOLUTE IMMATURE GRANULOCYTES 0.05 x10^3/uL (0.0-0.031); EOSINOPHIL % 3.7 % (0.8-7.0); EOSINOPHILS # 0.39 x10^3/uL (0.04-0.54); IMMATURE PLATELET FRACTION # 6.70 x10^3/uL; MEAN CELL VOLUME 80.6 fl (79.0-92.2); MEAN PLT VOLUME 10.3 fl (9.4-12.4); MONOCYTE # 0.60 x10^3/uL (0.30-0.82); MONOCYTE % 5.7 % (5.3-12.2); RDW 16.8 % (12.2-16.6)
[2025-01-22 09:53] LABS: CO2 24.0 mmol/L (21-32)
[2025-01-22 09:55] LABS: GLUCOSE,RANDOM 97.0 mg/dL (74-106)
[2025-01-22 09:57] LABS: CREATININE 0.79 mg/dL (0.55-1.3); SGOT/AST 22.0 U/L (15-37); SGPT/ALT 17.0 U/L (13-61)
[2025-01-22 09:58] LABS: TOT PROT 7.8 g/dl (6.4-8.2)
[2025-01-22] MEDS: PIPERACILLIN/TAZOB 4.5 GM 4.5 GM in DEXTROSE 5%-WATER 100 ML IVPB SCH (09:58)
[2025-01-22 10:05] LABS: ALK PHOS 87.0 U/L (45-117)
[2025-01-22] MEDS: SILVER SULFADIAZINE 1% TOP CREAM 400 GM JAR TP SCH (14:18)
[2025-01-22] MEDS: AMINO ACIDS/PROTEIN HYDROLYS 30 ML LIQUID.PKT PO SCH (17:29)
[2025-01-23 07:08] LABS: INR 1.13 (0.83-1.09); PROTHROMBIN TIME (PATIENT) 12.3 SEC (9.7-13.0)
[2025-01-23 07:35] LABS: ABSOLUTE IMMATURE GRANULOCYTES 0.02 x10^3/uL (0.0-0.031); BASOPHILS # 0.02 x10^3/uL (0.01-0.08); EOSINOPHIL % 5.3 % (0.8-7.0); EOSINOPHILS # 0.41 x10^3/uL (0.04-0.54); IMMATURE PLATELET FRACTION # 7.10 x10^3/uL; MCHC 33.8 g/dl (32.3-36.5); MEAN CELL VOLUME 81.1 fl (79.0-92.2); MEAN PLT VOLUME 10.8 fl (9.4-12.4); MONOCYTE # 0.57 x10^3/uL (0.30-0.82); MONOCYTE % 7.3 % (5.3-12.2); RDW 17.0 % (12.2-16.6)
[2025-01-23] MEDS: MULTIVITAMINS (DAILY MVI) TABLET (FP) PO SCH (09:47)
[2025-01-23] MEDS: ASCORBIC ACID 250 MG TABLET (FP) PO SCH (09:47)
[2025-01-23 10:45] LABS: GLUCOSE,RANDOM 86.0 mg/dL (74-106); TOT PROT 6.8 g/dl (6.4-8.2)
[2025-01-23 10:46] LABS: CO2 19.0 mmol/L (21-32)
[2025-01-23 10:48] LABS: ALK PHOS 74.0 U/L (40-150)
[2025-01-23 10:50] LABS: SGPT/ALT 6.0 U/L (0-55)
[2025-01-23 10:51] LABS: CREATININE 0.72 mg/dL (0.55-1.3); SGOT/AST 22.0 U/L (5-34)
[2025-01-23 16:47] LABS: ARTERIAL BLD GAS O2 SATURATION 95.3 % (95-98); ARTERIAL BLOOD GAS BASE EXCESS -3.1 mmol/L (-2-2); ARTERIAL BLOOD GAS PCO2 35.00 mmHg (35-45); ARTERIAL BLOOD GAS PO2 75.6 mmHg (80-100); BG HCT 27.0 % (35.4-49)
[2025-01-23 16:48] LABS: ALLENS TEST POSITIVE
[2025-01-23 16:49] LABS: MCHC 32.6 g/dl (32.3-36.5); MEAN CELL VOLUME 83.2 fl (79.0-92.2); MEAN PLT VOLUME 9.4 fl (9.4-12.4); RDW 17.3 % (12.2-16.6)
[2025-01-23] MEDS: MAGNESIUM SULFATE IN WATER 2 GM/50 ML IVPB IVPB ONE (17:11)
[2025-01-23] MEDS: AMOX TR/POT CLAV 875MG/125MG TABLETS (FP) PO SCH (20:49)
[2025-01-24] MEDS ORDERED: TAMSULOSIN HCL 0.4 MG CAP PO SCH (08:30)
[2025-01-24] MEDS ORDERED: amLODIPine BESYLATE 10 MG TABLET (FP) PO SCH (10:00)
[2025-01-24] MEDS: TAMSULOSIN HCL 0.4 MG CAP PO SCH (10:40)
[2025-01-24] MEDS: HEPARIN NA (PORCINE) 5,000 UNITS/ML 1ML VIAL SQ SCH (10:41)
[2025-01-24] MEDS: MULTIVITAMINS (DAILY MVI) TABLET (FP) PO SCH (10:41)
[2025-01-24] MEDS: ASCORBIC ACID 250 MG TABLET (FP) PO SCH (10:41)
[2025-01-24] MEDS: amLODIPine BESYLATE 10 MG TABLET (FP) PO SCH (10:41)
[2025-01-24] MEDS: PIPERACILLIN/TAZOB 4.5 GM 4.5 GM in DEXTROSE 5%-WATER 100 ML IVPB SCH (13:30)
[2025-01-24] MEDS: PANTOPRAZOLE SODIUM 40 MG VIAL IVPUSH SCH (17:09)
[2025-01-24] MEDS: AMINO ACIDS/PROTEIN HYDROLYS 30 ML LIQUID.PKT PO SCH (17:11)
[2025-01-24] MEDS: PANTOPRAZOLE 40 MG TABLET PO SCH (17:11)
[2025-01-24] MEDS: SILVER SULFADIAZINE 1% TOP CREAM 400 GM JAR TP SCH (17:14)
[2025-01-25 07:08] LABS: ABSOLUTE IMMATURE GRANULOCYTES 0.02 x10^3/uL (0.0-0.031); BASOPHILS # 0.02 x10^3/uL (0.01-0.08); EOSINOPHIL % 4.5 % (0.8-7.0); EOSINOPHILS # 0.27 x10^3/uL (0.04-0.54); MCHC 33.7 g/dl (32.3-36.5); MEAN CELL VOLUME 79.9 fl (79.0-92.2); MEAN PLT VOLUME 9.6 fl (9.4-12.4); MONOCYTE # 0.63 x10^3/uL (0.30-0.82); MONOCYTE % 10.6 % (5.3-12.2); RDW 16.6 % (12.2-16.6)
[2025-01-25 07:35] LABS: GLUCOSE,RANDOM 89.0 mg/dL (74-106)
[2025-01-25 07:37] LABS: CO2 22.0 mmol/L (21-32)
[2025-01-25 07:41] LABS: CREATININE 0.65 mg/dL (0.55-1.3)
[2025-01-25] MEDS ORDERED: guaiFENesin/D-METHORPHAN HB 10 ML UNIT-DOSE CUPS PO PRN (11:39)
[2025-01-25] MEDS ORDERED: ALBUTEROL SO4 2.5/IPRATROPIUM 0.5 INH SOL 3 ML VIAL.NEB. NEB PRN (11:39)
[2025-01-25] MEDS: MAGNESIUM 1GM/D5W 100ML - 100 ML IVPB IVPB ONE (11:53)
[2025-01-25] MEDS: MAGNESIUM OXIDE 400 MG TABLET (FP) PO ONE (13:06)
[2025-01-26 08:03] LABS: MCHC 33.2 g/dl (32.3-36.5); MEAN CELL VOLUME 80.5 fl (79.0-92.2); MEAN PLT VOLUME 9.5 fl (9.4-12.4); RDW 16.8 % (12.2-16.6)
[2025-01-26 08:16] LABS: GLUCOSE,RANDOM 85.0 mg/dL (74-106)
[2025-01-26 08:18] LABS: CO2 21.0 mmol/L (21-32)
[2025-01-26 08:22] LABS: CREATININE 0.7 mg/dL (0.55-1.3)
[2025-01-26] MEDS: LOSARTAN POTASSIUM 50 MG TABLET PO SCH (09:07)
[2025-01-26] MEDS: MAGNESIUM OXIDE 400 MG TABLET (FP) PO ONE (10:50)
[2025-01-27 07:09] LABS: ABSOLUTE IMMATURE GRANULOCYTES 0.04 x10^3/uL (0.0-0.031); BASOPHILS # 0.02 x10^3/uL (0.01-0.08); EOSINOPHIL % 4.0 % (0.8-7.0); EOSINOPHILS # 0.27 x10^3/uL (0.04-0.54); MCHC 32.4 g/dl (32.3-36.5); MEAN CELL VOLUME 82.5 fl (79.0-92.2); MEAN PLT VOLUME 9.5 fl (9.4-12.4); MONOCYTE # 0.67 x10^3/uL (0.30-0.82); MONOCYTE % 9.9 % (5.3-12.2); RDW 17.2 % (12.2-16.6)
[2025-01-27 08:19] LABS: GLUCOSE,RANDOM 84.0 mg/dL (74-106)
[2025-01-27 08:21] LABS: CO2 20.0 mmol/L (21-32)
[2025-01-27 08:25] LABS: CREATININE 0.71 mg/dL (0.55-1.3)
[2025-01-27 17:16] LABS: SYPHILIS W/ RPR CONF REACTIVE (NONREACTIVE)
[2025-01-28 07:42] LABS: MCHC 32.4 g/dl (32.3-36.5); MEAN CELL VOLUME 81.6 fl (79.0-92.2); MEAN PLT VOLUME 9.4 fl (9.4-12.4); RDW 17.0 % (12.2-16.6)
[2025-01-28 08:09] LABS: GLUCOSE,RANDOM 87 mg/dL (74-106)
[2025-01-28 08:10] LABS: TOT PROT 7.2 g/dl (6.4-8.2)
[2025-01-28 08:11] LABS: CO2 22 mmol/L (21-32)
[2025-01-28 08:12] LABS: ALK PHOS 72 U/L (40-150)
[2025-01-28 08:15] LABS: CREATININE 0.76 mg/dL (0.55-1.3); SGOT/AST 19 U/L (5-34)
[2025-01-28 09:01] LABS: SGPT/ALT < 6 U/L (0-55)
[2025-01-28 12:26] LABS: RPR REFLEX REACTIVE 1:4 (NONREACTIVE)
[2025-01-28 16:03] VITALS: RESP 18
[2025-01-29 08:38] LABS: MCHC 32.6 g/dl (32.3-36.5); MEAN CELL VOLUME 81.1 fl (79.0-92.2); MEAN PLT VOLUME 9.6 fl (9.4-12.4); RDW 17.0 % (12.2-16.6)
[2025-01-29 09:14] LABS: GLUCOSE,RANDOM 90.0 mg/dL (74-106); TOT PROT 7.2 g/dl (6.4-8.2)
[2025-01-29 09:15] LABS: CO2 21.0 mmol/L (21-32)
[2025-01-29 09:17] LABS: ALK PHOS 73.0 U/L (40-150)
[2025-01-29 09:19] LABS: SGOT/AST 22.0 U/L (5-34); SGPT/ALT 7.0 U/L (0-55)
[2025-01-29 09:20] LABS: CREATININE 0.72 mg/dL (0.55-1.3)
[2025-01-30] MEDS ORDERED: GABAPENTIN 300 MG CAPSULE PO SCH (14:00)
[2025-01-30 14:31] VITALS: BP 128/73; PULSE 68; TEMP 98.1
[2025-01-31] MEDS ORDERED: ASPIRIN COATED 81 MG TABLET.EC PO SCH (10:00)
== END 2025-01-30 16:01 | DRG 177 ==
LOC: JER 01:50 → JERBED 05:08 → J4W 09:57 → J8W 01-23 22:51
PROVIDERS: ADMIT Internal Medicine; ATTEND Nurse Practitioner Acute Care
DX: J69.0 Pneumonitis due to inhalation of food and vomit (principal); G93.41 Metabolic encephalopathy; J96.01 Acute respiratory failure with hypoxia; R53.2 Functional quadriplegia; K92.0 Hematemesis; I10 Essential (primary) hypertension; K74.60 Unspecified cirrhosis of liver; B18.2 Chronic viral hepatitis C; D64.9 Anemia, unspecified; E78.5 Hyperlipidemia, unspecified; K21.9 Gastro-esophageal reflux disease without esophagitis; N40.0 Benign prostatic hyperplasia without lower urinary tract symptoms; Z21 Asymptomatic human immunodeficiency virus [HIV] infection status
CPT/HCPCS: 36415; 36600; 70450-TC; 70551-TC; 71045-TC-FY; 76700-TC; 80048; 80053; 81003; 82140; 82803; 82962; 83605; 83735; 84100; 84484; 85025; 85027; 85610; 86359; 86360; 86593; 86777; 86778; 86780; 86850; 86900; 86901; 87086; 87517; 87536; 93005; 93010; 97116-GP; 97162-GP; 99285-25